=== PATIENT | male | born 1990 | race Caucasian/White ===

== ENCOUNTER 2020-02-03 10:29 | Emergency (ER) | payer OTHER, SELFPAY ==
--- NOTE | 2020-02-03 | ECG_ITS ---
Test Reason : CHEMICAL EXPOSURE Blood Pressure : / mmHG Vent. Rate : 080 BPM Atrial Rate : 080 BPM P-R Int : 164 ms QRS Dur : 086 ms QT Int : 356 ms P-R-T Axes : 029 038 027 degrees QTc Int : 410 ms Normal sinus rhythm Normal ECG No previous ECGs available Referred By: Generic ED Physician Electronically Signed By:BIANCA GONZALEZ MD
--- NOTE | 2020-02-03 10:48 | ED.BURNSMOKE ---
HPI - Burn/Smoke Inhalation General Chief complaint: Burn/Smoke Inhalation Stated complaint: CHEMICAL BURN AT WORK Time Seen by Provider: 02/03/20 10:46 Source: patient Mode of arrival: ambulatory Limitations: no limitations History of Present Illness HPI Narrative: splashed at work irrigated 2 to 3 minutes, wearing goggles no mouth exposure, applied calcium gluconate gel Complaint: chemical exposure Onset (ago): minute(s) Type of Exposure: chemical (hydrofluoric acid) Smoke Inhalation: brief Place: industrial Location: face Location - Extremities: right: forearm Severity: mild Associated symptoms: denies other symptoms Related Data Allergies Allergy/AdvReac Type Severity Reaction Status Date / Time No Known Allergies Allergy Verified 02/03/20 10:48 Review of Systems Review of Systems: Constitutional : No Weight loss, No Fever, No Chills, No Fatigue, No Malaise ENT/Mouth : No sore throat, No Rhinorrhea Eyes: No Eye Pain, No Swelling, No Redness Cardiovascular : No Chest Pain, No SOB, No Dyspnea on Exertion, No Orthopnea, No Edema, No Palpitations Respiratory : No Cough, No Sputum, No Wheezing Gastrointestinal : No Nausea, No Vomiting, No Diarrhea, No Constipation, No abdominal Pain, No Hematochezia, No Melena Genitourinary : No Dysuria, No Urinary Frequency, No Hematuria, Musculoskeletal : No joint pain, No Myalgias, No Joint Swelling Skin : no rash but tingling on arms and face Neuro : No Weakness, No Numbness, No Dizziness, No Headache Psych : No Anxiety/Panic, No Depression Heme/Lymph: No Bruising, No Bleeding,No Lymphadenopathy Endocrine : No Polyuria, No Polydipsia All other systems reviewed and are negative [facility] Past Medical History Attestation statement: The following information was validated with the patient. Medical History No known health problems Social History Social History (Updated 02/03/20 @ 11:07 by Ana Maria Stevens DO) Smoking Status: Never smoker Use of substances other than those prescribed or required for medical reasons: No Advance Directives: No Advance Directives Information Provided: No Physical Exam Vital Signs: Vital Signs: Last Vital Signs Temp 96.6 F L 02/03/20 10:52 Pulse 70 02/03/20 13:52 Resp 18 02/03/20 10:52 BP 147/87 H 02/03/20 10:52 Pulse Ox 99 02/03/20 13:52 Body Mass Index 35.6 Appearance: Alert. Oriented X3. No acute distress. Eyes: Pupils equal, round and reactive to light. ENT: Pharynx normal. no lesions calcium gluconate gel noted Neck: Normal inspection. Neck supple. CVS: Normal heart rate and rhythm. Pulses normal. Respiratory: No respiratory distress. Breath sounds normal. Abdomen: Soft and nontender. Skin: Skin warm and dry. Normal skin color. Normal skin turgor. Calcium gel noted on extremities but no erythema Extremities: No lower extremity edema. No calf ttp Neuro: Oriented X 3. No motor deficit. No sensory deficit. Course Course Course Narrative: cleared by poison control MDM - Burn/Smoke Inhalation MDM Narrative Medical decision making narrative: 30 yo male with hydroflouric acid exposure will irrigate, check ionized calcium, apply calcium topical gel - observe in ED no eye or resp issues, did a good job pre hospital decontaminating himself Lab Data Result diagrams: 02/03/20 12:16 02/03/20 12:16 Labs: Lab Results 02/03/20 Range/Units 12:16 Sodium 138 (135-145) mmol/L Potassium 3.9 (3.3-5.1) mmol/l Chloride 102 (96-108) mmol/L Carbon Dioxide 30 H (22-29) mmol/L Anion Gap 10 L (12-20) BUN 12 (9-16) mg/dL Creatinine 0.96 (0.5-1.4) mg/dL Estim Creat Clear Calc 115.5 Estimated GFR > 60 Random Glucose 90 (60-115) mg/dL Calcium 9.3 (8.4-10.2) mg/dL Phosphorus 3.3 (2.7-4.5) mg/dL Magnesium 2.1 (1.6-2.6) mg/dL ECG Data Attestation: I personally reviewed and interpreted this ECG as follows: ECG interpretation date: 02/03/20 ECG interpretation time: 12:02 Interpretation: Rate: 80 Rhythm: NSR [place]: normal Normal P waves. Normal SEB. Normal QRS complex. ST T wave : normal qTC: normal prior studies: no acute ischemia The study has been interpreted contemporaneously by me. . Discharge Plan Discharge Clinical Impression: Accidental exposure to hydrofluoric acid Patient Disposition: Home, Self-Care Instructions: Chemical Skin Burn (ED) Additional Instructions: return to ED for any worsening symptoms or concerns MONITOR FOR SIGNS OF BURN, LEG CRAMPS OR MUSCLE SPASMS REAPPLY THE GEL BEFORE BED TONIGHT Stand Alone Forms: Work/School Release
[2020-02-03 10:52] VITALS: BP 147/87; PULSE 84; RESP 18; TEMP 35.9; O2SAT 99; BMI 35.6
[2020-02-03] MEDS: Calcium Carbonate 750 MG TAB.CHEW 10000 MG TOPICAL (11:30)
--- NOTE | 2020-02-03 12:00 | PC.NURSE ---
POISON CONTROL CONTACTED. RECOMMEND ALL LYTES AND EKG.
[2020-02-03 12:49] LABS: Blood Urea Nitrogen 12 mg/dL (9-16); Calcium 9.3 mg/dL (8.4-10.2); Creatinine Clr Calc Pharmacy 115.5; Estimated Glomerular Filt Rate > 60; Glucose Random 90 mg/dL (60-115); Magnesium 2.1 mg/dL (1.6-2.6); Phosphorus 3.3 mg/dL (2.7-4.5)
[2020-02-03 12:59] LABS: Anion Gap 10 (12-20); Carbon Dioxide 30 mmol/L (22-29); Chloride 102 mmol/L (96-108); Potassium 3.9 mmol/l (3.3-5.1); Sodium 138 mmol/L (135-145)
--- NOTE | 2020-02-03 13:17 | PC.NURSE ---
PT ARRIVES AFTER EXPOSURE TO HYDROFLUORIC ACID AT WORK. WAS WEARING GLOVES, GOGGLES AT TTIME OF EXPOSURE. DOES NOT THINK IT REACHED HIS EYES. COVERED ARMS BILATERALLY TO SHOULDERS, FACE. SKIN DOES NOT YET APPEAR TO BE IRRITATED, SLIGHTLY ITCHY ON R SIDE OF HIS FACE. ALL EXPOSED AREAS COVERED WITH CALCIUM CREAM ORDERED. EKG COMPLETED, ALL LABS DRAWN. WILL CONTINUE TO MONITOR.
[2020-02-03 13:52] VITALS: PULSE 70; O2SAT 99
--- NOTE | 2020-02-03 13:57 | PC.NURSE ---
Poison control updated, pt cleared to be discharged home.
[2020-02-06 19:11] LABS: Calcium, Ionized 5.2 mg/dL (4.8-5.6)
== END 2020-02-03 14:28 | disposition home or self-care (01) ==
PROVIDERS: Emergency Provider Emergency Medicine
DX: M79.631 Pain in right forearm (principal); T54.2X1A Toxic effect of corrosive acids and acid-like substances, accidental (unintentional), initial encounter; T22.411A Corrosion of unspecified degree of right forearm, initial encounter; Y93.9 Activity, unspecified; Y92.9 Unspecified place or not applicable; Y99.0 Civilian activity done for income or pay; Z57.5 Occupational exposure to toxic agents in other industries
CPT/HCPCS: 80048; 82330; 83735; 84100; 93005; 99283; 99284